=== PATIENT | female | born 1995 | race Caucasian/White ===

== ENCOUNTER 2020-06-24 16:39 | Emergency (ER) | payer OTHER ==
[~2020-06-24] VITALS: Ht 154.9 cm; Wt 59.0 kg
[~2020-06-24 16:39] MED LIST: LEVSIN/SL0.125 MG SL; SEPTRA DS TABLE1 TAB PO
[2020-06-24] MEDS ORDERED: SYNTHROID75 MCG (16:53)
[2020-06-24] MEDS ORDERED: AMOX-CLAV 500-1 EACH PO (20:38)
[2020-06-24] MEDS ORDERED: NAPROXEN500 MG PO (20:38)
[2020-06-24] MEDS ORDERED: PEPCID AC20 MG PO (20:38)
[2020-06-24] MEDS ORDERED: INTESTINEX680 M2 PO (20:54)
== END 2020-06-24 21:06 | disposition home or self-care (01) ==
LOC: ER 16:39
DX: S82.035A Nondisplaced transverse fracture of left patella, initial encounter for closed fracture (principal); S01.521A Laceration with foreign body of lip, initial encounter; W05.1XXA Fall from non-moving nonmotorized scooter, initial encounter; Y93.89 Activity, other specified; Y92.488 Other paved roadways as the place of occurrence of the external cause; Y99.8 Other external cause status

== ENCOUNTER → 2020-07-02 | Emergency (ER) | payer OTHER ==
[~2020-07-02] VITALS: Ht 162.6 cm; Wt 61.2 kg
[~2020-07-02] MED LIST changes: +AMOX-CLAV 500-1 EACH PO; +INTESTINEX680 M2 PO; +NAPROXEN500 MG PO; +PEPCID AC20 MG PO; +SYNTHROID75 MCG
== END | disposition home or self-care (01) ==
LOC: ER 09:01
DX: Z48.02 Encounter for removal of sutures (principal)

== ENCOUNTER 2021-02-20 18:43 | Emergency (ER) | payer OTHER ==
[~2021-02-20] VITALS: Ht 154.9 cm; Wt 61.2 kg
[2021-02-20] MEDS ORDERED: ZOFRAN4 MG PO (19:07)
[2021-02-20] MEDS ORDERED: ZITHROMAX TRI-500 MG PO (23:25)
== END 2021-02-21 00:22 | disposition home or self-care (01) ==
LOC: ER 18:43
DX: O21.8 Other vomiting complicating pregnancy (principal); Z3A.11 11 weeks gestation of pregnancy

== ENCOUNTER 2021-03-01 14:09 | Outpatient (CLI) | payer OTHER ==
[~2021-03-01 14:09] MED LIST changes: +ZITHROMAX TRI-500 MG PO; +ZOFRAN4 MG PO
== END 2021-03-01 15:17 | disposition home or self-care (01) ==
LOC: PRENATAL 14:09
PROVIDERS: ATTEND Obstetrics & Gynecology Maternal & Fetal Medicine
DX: O26.851 Spotting complicating pregnancy, first trimester (principal); O36.80X1 Pregnancy with inconclusive fetal viability, fetus 1; O99.891 Other specified diseases and conditions complicating pregnancy; O44.01 Complete placenta previa NOS or without hemorrhage, first trimester; Z36.89 Encounter for other specified antenatal screening; Z3A.12 12 weeks gestation of pregnancy

== ENCOUNTER 2021-04-27 13:42 | Outpatient (CLI) | payer OTHER | END 2021-04-27 15:14 | disposition home or self-care (01) | LOC: PRENATAL 13:42 | PROVIDERS: ATTEND Obstetrics & Gynecology Maternal & Fetal Medicine | DX: O35.0XX1 Maternal care for (suspected) central nervous system malformation in fetus, fetus 1 (principal); O35.3XX1 Maternal care for (suspected) damage to fetus from viral disease in mother, fetus 1; O98.512 Other viral diseases complicating pregnancy, second trimester; O99.891 Other specified diseases and conditions complicating pregnancy; O44.02 Complete placenta previa NOS or without hemorrhage, second trimester; Z36.89 Encounter for other specified antenatal screening; Z3A.19 19 weeks gestation of pregnancy ==

== ENCOUNTER 2021-07-29 11:20 | Outpatient (CLI) | payer OTHER | END 2021-07-29 11:58 | disposition home or self-care (01) | LOC: PRENATAL 11:20 | PROVIDERS: ATTEND Obstetrics & Gynecology Maternal & Fetal Medicine | DX: O26.849 Uterine size-date discrepancy, unspecified trimester (principal); O44.00 Complete placenta previa NOS or without hemorrhage, unspecified trimester; O99.891 Other specified diseases and conditions complicating pregnancy; O34.219 Maternal care for unspecified type scar from previous cesarean delivery ==

== ENCOUNTER 2021-09-08 09:15 | Inpatient (IN) | payer OTHER ==
[~2021-09-08] VITALS: Ht 154.9 cm; Wt 78.0 kg
[~2021-09-08 09:15] MED LIST changes: -SYNTHROID75 MCG; +SYNTHROID75 MCG PO
[2021-09-13] MEDS ORDERED: SYNTHROID200 MCG PO (08:11)
[2021-09-13] MEDS ORDERED: PRENATAL TABLE1 EAC3 PO (08:12)
[2021-09-16] MEDS ORDERED: IBU800 MG PO (10:46)
[2021-09-16] MEDS ORDERED: SURFAK240 M1 PO (10:46)
[2021-09-16] MEDS ORDERED: SIMETHICONE125 M1 PO (10:47)
== END 2021-09-16 11:16 | disposition home or self-care (01) | DRG 785 ==
LOC: OB/GYN 09-13 09:15 → O/R 09-13 10:13 → OB/GYN 09-13 13:15
PROVIDERS: ADMIT Obstetrics & Gynecology; ATTEND Obstetrics & Gynecology
PROC: 0UB70ZZ Excision of Bilateral Fallopian Tubes, Open Approach (ICD-10-PCS; 2021-09-13)
PROC: 4A1HXCZ Monitoring of Products of Conception, Cardiac Rate, External Approach (ICD-10-PCS; 2021-09-13)
PROC: 10D00Z1 Extraction of Products of Conception, Low, Open Approach (ICD-10-PCS; principal; 2021-09-13 13:15)
DX: O34.211 Maternal care for low transverse scar from previous cesarean delivery (principal); Z3A.39 39 weeks gestation of pregnancy; Z37.0 Single live birth; Z20.822 Contact with and (suspected) exposure to COVID-19; Z30.2 Encounter for sterilization